=== PATIENT | male | born 1975 | race Caucasian/White ===

== ENCOUNTER 2019-09-10 18:51 | Inpatient (IN) | payer OTHER ==
[~2019-09-10] VITALS: Ht 182.9 cm; Wt 95.7 kg
--- NOTE | ~2019-09-10 | PROC ---
[address] [address] PROCEDURE REPORT Name: GRABIEL GERMAN Room: [address] ADM IN M.R.#: [id number] Admission: 09/10/19 Attend Phys: Rin Matute Discharge: Date of : 79 Report #: [id number] THIS REPORT FOR: //name// cc: FAM - No family physician/PCP FAM - No family physician/PCP ~ THIS REPORT FOR: //name// For GI report, please see the Provation report in Perceptive 7 content. By: [id number] Records Staff GILBERT /DAVID
[~2019-09-10 18:51] MED LIST: ASPIR 8181 MG PO; BACTRIM DS TAB1 EACH PO; GEMFIBROZIL1 GM PO; LANTUS100 UNIT/M SUBQ; METFORMIN HCL500 MG PO; NIACIN ER1000 MG PO; SERTRALINE HCL50 MG PO; VASCEPA0.5 GM
[2019-09-10 19:06] VITALS: BP 160/97
[2019-09-10] MEDS ORDERED: TRESIBA100 UNIT/1 SUBQ (19:11)
[2019-09-10 20:18] LABS: URINE BILIRUBIN NEGATIVE (Negative); URINE BLOOD TRACE (Negative); URINE CLARITY CLEAR; URINE COLOR YELLOW; URINE GLUCOSE-RANDOM 3+ (Negative); URINE KETONES 1+ (Negative); URINE LEUKOCYTES-REFLEX NEGATIVE (Negative); URINE NITRITE-REFLEX NEGATIVE (Negative); URINE PROTEIN 3+ (Negative); URINE SPECIFIC GRAVITY 1.025 (1.005-1.030); URINE UROBILINOGEN 0.2 E.U./dl (0.2-1.0)
[2019-09-10 20:34] LABS: BACTERIA-REFLEX None Seen /HPF (None Seen); CASTS None Seen /LPF (None Seen); CRYSTALS None Seen /LPF (None Seen); MUCUS 0-3 Light strn/LPF (None Seen); SQUAMOUS 4-10 Moderate /LPF (0-3); URINE RBC None Seen /HPF (0-2); URINE WBC-REFLEX None Seen /HPF (0-5)
[2019-09-10 20:46] LABS: ABSOLUTE BASOPHILS 0.1 thou/uL (0.0-0.2); ABSOLUTE EOSINOPHILS 0.1 thou/uL (0.0-0.7); ABSOLUTE LYMPHOCYTES 3.5 thou/uL (0.8-5.3); ABSOLUTE MONOCYTES 0.6 thou/uL (0.0-1.2); ABSOLUTE NEUTROPHILS 7.5 thou/uL (1.6-8.1); BASOPHILS 1.2 %; EOSINOPHILS 0.5 %; HEMATOCRIT 46.4 % (42.0-52.0); HEMOGLOBIN 16.2 gm/dL (14.0-18.0); LYMPHOCYTES 29.6 %; MCH 29.2 pg (26.0-34.0); MCV 83.5 fL (80.0-100.0); MONOCYTES 5.3 %; MPV 8.8 fl. (7.2-11.1); NUCLEATED RBCS 0 /100WBC; PLATELET COUNT* 267 thou/uL (150-400); POLYS 63.4 %; RBC 5.56 mil/uL (4.50-6.00); RDW-CV 14.5 % (10.5-14.5); WBC 11.8 thou/uL (4.0-11.0)
[2019-09-10 20:55] LABS: CALCIUM 9.6 mg/dL (8.5-10.1); CREATININE 0.7 mg/dL (0.6-1.3); POTASSIUM 3.8 mmol/L (3.5-5.1)
[2019-09-10 20:59] LABS: ALBUMIN 3.4 g/dL (3.4-5.0); TOTAL BILIRUBIN 0.5 mg/dL (<0.1-1.0); TOTAL PROTEIN 8.2 g/dL (6.4-8.2)
[2019-09-11] VITALS (7 sets, daily range): BP systolic 132–167; BP diastolic 80–107
[2019-09-11 03:53] LABS: ABSOLUTE BASOPHILS 0.1 thou/uL (0.0-0.2); ABSOLUTE EOSINOPHILS 0.1 thou/uL (0.0-0.7); ABSOLUTE LYMPHOCYTES 2.8 thou/uL (0.8-5.3); ABSOLUTE MONOCYTES 0.7 thou/uL (0.0-1.2); ABSOLUTE NEUTROPHILS 7.7 thou/uL (1.6-8.1); BASOPHILS 0.5 %; EOSINOPHILS 0.5 %; HEMATOCRIT 40.5 % (42.0-52.0); HEMOGLOBIN 14.3 gm/dL (14.0-18.0); MCHC 35.2 g/dL (28.0-37.0); MCV 82.2 fL (80.0-100.0); MONOCYTES 6.5 %; MPV 8.1 fl. (7.2-11.1); NUCLEATED RBCS 0 /100WBC; PLATELET COUNT* 224 thou/uL (150-400); POLYS 67.5 %; RBC 4.92 mil/uL (4.50-6.00); RDW-CV 14.5 % (10.5-14.5); WBC 11.3 thou/uL (4.0-11.0)
[2019-09-11 04:08] LABS: CALCIUM 8.4 mg/dL (8.5-10.1); CREATININE 0.7 mg/dL (0.6-1.3); POTASSIUM 3.6 mmol/L (3.5-5.1)
[2019-09-11 04:18] LABS: ALBUMIN 2.8 g/dL (3.4-5.0); TOTAL BILIRUBIN 0.5 mg/dL (<0.1-1.0); TOTAL PROTEIN 6.9 g/dL (6.4-8.2)
[2019-09-11 15:39] LABS: AMP/METHAMP Negative (Negative); BARBITURATES Negative (Negative); BENZODIAZEPINES Negative (Negative); COCAINE Negative (Negative); METHADONE Negative (Negative); OPIATES Negative (Negative); PCP Negative (Negative); THC POSITIVE (Negative)
[2019-09-11] MEDS ORDERED: LISINOPRIL10 MG PO (17:12)
[2019-09-11 23:11] LABS: GLYCOHEMOGLOBIN (HGB A1C) 11.3 % (4.8-5.6)
[2019-09-12 04:48] LABS: ABSOLUTE BASOPHILS 0.1 thou/uL (0.0-0.2); ABSOLUTE EOSINOPHILS 0.1 thou/uL (0.0-0.7); ABSOLUTE LYMPHOCYTES 2.7 thou/uL (0.8-5.3); ABSOLUTE MONOCYTES 0.6 thou/uL (0.0-1.2); ABSOLUTE NEUTROPHILS 5.8 thou/uL (1.6-8.1); BASOPHILS 0.9 %; EOSINOPHILS 0.8 %; HEMATOCRIT 39.5 % (42.0-52.0); HEMOGLOBIN 14.1 gm/dL (14.0-18.0); LYMPHOCYTES 29.2 %; MCHC 35.7 g/dL (28.0-37.0); MCV 81.1 fL (80.0-100.0); MONOCYTES 6.6 %; MPV 7.7 fl. (7.2-11.1); NUCLEATED RBCS 0 /100WBC; PLATELET COUNT* 213 thou/uL (150-400); POLYS 62.5 %; RBC 4.87 mil/uL (4.50-6.00); RDW-CV 14.3 % (10.5-14.5); WBC 9.3 thou/uL (4.0-11.0)
[2019-09-12 05:13] LABS: CALCIUM 8.1 mg/dL (8.5-10.1); CREATININE 0.5 mg/dL (0.6-1.3)
[2019-09-12 05:27] LABS: POTASSIUM 2.9 mmol/L (3.5-5.1)
[2019-09-12 08:00] VITALS: BP 155/94
--- NOTE | 2019-09-12 12:19 | CON ---
[address] [address] CONSULTATION Name: GRABIEL GERMAN Marcos Room: [address] IN M.R.#: [id number] Admission: 09/10/19 Attend Phys: Rin Matute Discharge: Date of : 79 Report #: [id number] THIS REPORT FOR: //name// cc: JORGE ALBERTO Zarate family physician/PCP JORGE ALBERTO - No family physician/PCP ~ THIS REPORT FOR: //name// CC: [facility] physician/PCP Torrie Byers DICTATED BY: Fifi Sanders [facility] DATE OF SERVICE: 09/11/2019 PRIMARY CARE PHYSICIAN: Torrie Sosa MD Please note at the time of this dictation, the patient was seen and physically examined by myself. REASON FOR CONSULTATION: Epigastric pain, nausea and vomiting, and thickening of his small bowel and colon bedolla. ALLERGIES: No known drug allergies. MEDICATIONS FROM HOME: Insulin, Zoloft, gemfibrozil, Vascepa, metformin, aspirin, niacin. HISTORY OF PRESENT ILLNESS: This is a 44-year-old male who presented to the Emergency Room with 3 days prior to admission having recurrent episodes of nausea and vomiting. He had some difficulty swallowing. He was breaking out in hot and cold sweats. He denied any bright red blood or coffee-ground emesis. He has had a decreased appetite and he has had some epigastric pain. The patient states he had a similar episode back in August as well. He states these episodes have been intermittent since December 2018 with his last episode being 08/15/2019. All have been of similar nature. This one seems to be somewhat worsened. He states his bowels typically move daily, soft and formed. He denies ever having an EGD or colonoscopy done before. PAST MEDICAL HISTORY: High cholesterol and insulin-dependent diabetic. PAST SURGICAL HISTORY: He had a cyst on his tailbone. FAMILY HISTORY: Negative for any GI or female cancers as well [place] [address] CONSULTATION Name: GRABIEL GERMAN Room: [address] IN [facility].#: [id number] Admission: 09/10/19 Attend Phys: Rin Matute Discharge: Date of : 79 Report #: [id number] SOCIAL HISTORY: Alcohol, special occasions. Denies any tobacco or illegal drug use. REVIEW OF SYSTEMS: Twelve-point review of systems is essentially negative except what is mentioned in the HPI. PHYSICAL EXAMINATION: VITAL SIGNS: Temperature 36.5, pulse 66, respirations 16, blood pressure 147/93. HEART: Regular rate and rhythm. LUNGS: Clear. ABDOMEN: Soft, positive bowel sounds in all 4 quadrants with epigastric tenderness noted to palpation. LABORATORY DATA: Hemoglobin is 14.3, white count is 11.3, platelets 224. Sodium is 130, BUN is up a little bit at 20 with a GFR of 124. CT of the abdomen and pelvis showed abnormal wall thickening of the small and large bowel. IMPRESSION: 1. Nausea and vomiting, improving. 2. Epigastric pain. 3. Leukocytosis. 4. Abnormal CT, thickening of the small and large intestine bedolla. PLAN: 1. Labs, ESR, CRP. 2. EGD and colonoscopy tomorrow with Dr. Sharma. 3. Further recommendations to be made once the procedure has been performed. Thank you for allowing us to participate in this patient's care. Please do not hesitate to call with any questions in regard to this consult. Agree with above assessment and plan by Fifi Sanders. VK. <ELECTRONICALLY SIGNED> By: Nico Sharma MD 09/12/19 1219 1125 1343Nico Sharma MD /nt
--- NOTE | 2019-09-12 13:57 | EKG ---
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
[2019-09-12 16:00] VITALS: BP 153/97
[2019-09-12 20:10] VITALS: BP 147/85
[2019-09-13 04:09] LABS: ABSOLUTE EOSINOPHILS 0.1 thou/uL (0.0-0.7); ABSOLUTE LYMPHOCYTES 2.3 thou/uL (0.8-5.3); ABSOLUTE MONOCYTES 0.5 thou/uL (0.0-1.2); ABSOLUTE NEUTROPHILS 4.4 thou/uL (1.6-8.1); BASOPHILS 0.5 %; HEMATOCRIT 39.8 % (42.0-52.0); HEMOGLOBIN 14.3 gm/dL (14.0-18.0); LYMPHOCYTES 31.5 %; MCH 29.3 pg (26.0-34.0); MCHC 35.9 g/dL (28.0-37.0); MCV 81.7 fL (80.0-100.0); MONOCYTES 6.9 %; MPV 8.5 fl. (7.2-11.1); NUCLEATED RBCS 0 /100WBC; PLATELET COUNT* 210 thou/uL (150-400); POLYS 60.1 %; RBC 4.87 mil/uL (4.50-6.00); RDW-CV 14.7 % (10.5-14.5); WBC 7.3 thou/uL (4.0-11.0)
[2019-09-13 04:37] LABS: CALCIUM 9.1 mg/dL (8.5-10.1); CREATININE 0.6 mg/dL (0.6-1.3); POTASSIUM 3.1 mmol/L (3.5-5.1)
[2019-09-13 08:43] VITALS: BP 149/98
[2019-09-13 11:02] VITALS: BP 149/98
[2019-09-13 17:38] VITALS: BP 171/101
[2019-09-13 18:24] VITALS: BP 178/108
[2019-09-13 22:30] VITALS: BP 168/107
[2019-09-14 07:57] VITALS: BP 166/90
[2019-09-14 16:00] VITALS: BP 125/85
[2019-09-15 00:48] VITALS: BP 144/77
[2019-09-15 08:10] VITALS: BP 168/105
[2019-09-15 16:00] VITALS: BP 166/105
[2019-09-15 20:40] VITALS: BP 106/68
[2019-09-16 07:50] VITALS: BP 121/84
[2019-09-16] MEDS ORDERED: AMARYL4 MG PO (13:57)
[2019-09-16] MEDS ORDERED: METFORMIN HCL500 MG PO (13:57)
[2019-09-16] MEDS ORDERED: REGLAN 10 MG TA10 MG PO (14:01)
[2019-09-16] MEDS ORDERED: NOVOLIN R100 UNIT/1 SUBQ (17:40)
[2019-09-16] MEDS ORDERED: NOVOLIN N100 UNIT/3 SUBQ (17:43)
[2019-09-16 17:50] VITALS: BP 121/84
[2019-09-16 19:53] VITALS: BP 121/84
[2019-09-16] MEDS ORDERED: PROTONIX40 M1 PO (20:45)
== END 2019-09-16 19:30 | disposition home or self-care (01) | DRG 74 ==
LOC: M.ERS 18:51 → M.3W 22:46 → M.TBA-ER 22:46 → M.3W 09-11 09:10
PROVIDERS: Internal Medicine; Nurse Practitioner Family; Physician Assistant; ADMIT Internal Medicine
DX: E11.43 Type 2 diabetes mellitus with diabetic autonomic (poly)neuropathy (principal); E87.1 Hypo-osmolality and hyponatremia; K52.9 Noninfective gastroenteritis and colitis, unspecified; E78.00 Pure hypercholesterolemia, unspecified; E78.5 Hyperlipidemia, unspecified; K31.84 Gastroparesis; F17.210 Nicotine dependence, cigarettes, uncomplicated; E11.65 Type 2 diabetes mellitus with hyperglycemia; E86.0 Dehydration; K21.0 Gastro-esophageal reflux disease with esophagitis; Z79.899 Other long term (current) drug therapy; Z79.82 Long term (current) use of aspirin; Z79.4 Long term (current) use of insulin

== ENCOUNTER 2019-12-25 15:15 | Emergency (ER) | payer BC ==
[~2019-12-25] VITALS: Ht 185.4 cm; Wt 97.5 kg
[~2019-12-25 15:15] MED LIST changes: +AMARYL4 MG PO; +LISINOPRIL10 MG PO; +NOVOLIN N100 UNIT/3 SUBQ; +NOVOLIN R100 UNIT/1 SUBQ; +PROTONIX40 M1 PO; +REGLAN 10 MG TA10 MG PO; +TRESIBA100 UNIT/1 SUBQ
[2019-12-25 15:47] LABS: URINE BILIRUBIN NEGATIVE (Negative); URINE BLOOD NEGATIVE (Negative); URINE CLARITY CLEAR; URINE COLOR YELLOW; URINE GLUCOSE-RANDOM NEGATIVE (Negative); URINE KETONES NEGATIVE (Negative); URINE LEUKOCYTES-REFLEX NEGATIVE (Negative); URINE NITRITE-REFLEX NEGATIVE (Negative); URINE PROTEIN 2+ (Negative); URINE SPECIFIC GRAVITY >= 1.030 (1.005-1.030); URINE UROBILINOGEN 0.2 E.U./dl (0.2-1.0)
[2019-12-25] MEDS ORDERED: GEMFIBROZIL 60600 MG PO (15:57)
[2019-12-25] MEDS ORDERED: REGLAN 10 MG TA10 MG PO (15:57)
[2019-12-25 15:58] LABS: ABSOLUTE BASOPHILS 0.1 thou/uL (0.0-0.2); ABSOLUTE LYMPHOCYTES 2.8 thou/uL (0.8-5.3); ABSOLUTE MONOCYTES 0.4 thou/uL (0.0-1.2); ABSOLUTE NEUTROPHILS 7.4 thou/uL (1.6-8.1); BASOPHILS 0.7 %; EOSINOPHILS 0.2 %; HEMATOCRIT 41.9 % (42.0-52.0); HEMOGLOBIN 14.7 gm/dL (14.0-18.0); LYMPHOCYTES 26.2 %; MCH 29.5 pg (26.0-34.0); MCHC 35.2 g/dL (28.0-37.0); MCV 83.6 fL (80.0-100.0); MONOCYTES 3.8 %; MPV 8.1 fl. (7.2-11.1); NUCLEATED RBCS 0 /100WBC; PLATELET COUNT* 249 thou/uL (150-400); POLYS 69.1 %; RBC 5.01 mil/uL (4.50-6.00); RDW-CV 13.7 % (10.5-14.5); WBC 10.8 thou/uL (4.0-11.0)
[2019-12-25] MEDS ORDERED: FISH OIL 1,0001 EAC9 PO (15:58)
[2019-12-25] MEDS ORDERED: METFORMIN HCL500 M3 PO (15:58)
[2019-12-25 16:00] LABS: SQUAMOUS NONE SEEN /LPF (0-3); URINE WBC-REFLEX None Seen /HPF (0-5)
[2019-12-25] MEDS ORDERED: LANTUS SUBQ (16:00)
[2019-12-25 16:01] LABS: BACTERIA-REFLEX 1-9 Few /HPF (None Seen); CASTS None Seen /LPF (None Seen); CRYSTALS None Seen /LPF (None Seen); MUCUS None Seen strn/LPF (None Seen); URINE RBC None Seen /HPF (0-2)
[2019-12-25 16:28] LABS: CALCIUM 8.9 mg/dL (8.5-10.1); CREATININE 0.8 mg/dL (0.6-1.3); POTASSIUM 3.4 mmol/L (3.5-5.1)
[2019-12-25 16:40] LABS: ALBUMIN 3.4 g/dL (3.4-5.0); TOTAL BILIRUBIN 0.3 mg/dL (<0.1-1.0); TOTAL PROTEIN 7.7 g/dL (6.4-8.2)
[2019-12-25] MEDS ORDERED: ONDANSETRON HCL4 M2 PO ×2 (18:13→18:16)
[2019-12-25] MEDS ORDERED: NORCO 5-325 TA1 EAC1 PO (18:13)
[2019-12-25 18:48] VITALS: BP 166/95
--- NOTE | 2019-12-26 14:05 | EKG ---
[place] [address] ELECTROCARDIOGRAM REPORT Name: GRABIEL GERMAN Room: 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
== END 2019-12-25 18:48 | disposition home or self-care (01) ==
LOC: M.ERS 15:15
PROVIDERS: Nurse Practitioner Family
DX: R10.84 Generalized abdominal pain (principal); R10.31 Right lower quadrant pain; R11.2 Nausea with vomiting, unspecified; E11.9 Type 2 diabetes mellitus without complications; F17.210 Nicotine dependence, cigarettes, uncomplicated; F12.10 Cannabis abuse, uncomplicated; E78.00 Pure hypercholesterolemia, unspecified; Z90.89 Acquired absence of other organs; Z79.4 Long term (current) use of insulin; Z79.82 Long term (current) use of aspirin

== ENCOUNTER 2020-01-02 07:41 | Emergency (ER) | payer BC ==
[~2020-01-02] VITALS: Ht 185.4 cm; Wt 97.5 kg
[~2020-01-02 07:41] MED LIST changes: +FISH OIL 1,0001 EAC9 PO; +GEMFIBROZIL 60600 MG PO; +LANTUS SUBQ; +METFORMIN HCL500 M3 PO; +NORCO 5-325 TA1 EAC1 PO; +ONDANSETRON HCL4 M2 PO
[2020-01-02] MEDS ORDERED: NOVOLOG FL100 UNIT/M SUBQ (07:54)
[2020-01-02 08:06] LABS: ABSOLUTE BASOPHILS 0.1 thou/uL (0.0-0.2); ABSOLUTE EOSINOPHILS 0.1 thou/uL (0.0-0.7); ABSOLUTE LYMPHOCYTES 2.8 thou/uL (0.8-5.3); ABSOLUTE MONOCYTES 0.6 thou/uL (0.0-1.2); ABSOLUTE NEUTROPHILS 7.4 thou/uL (1.6-8.1); BASOPHILS 0.6 %; HEMATOCRIT 42.8 % (42.0-52.0); HEMOGLOBIN 14.9 gm/dL (14.0-18.0); LYMPHOCYTES 25.3 %; MCH 29.1 pg (26.0-34.0); MCHC 34.8 g/dL (28.0-37.0); MCV 83.6 fL (80.0-100.0); MONOCYTES 5.2 %; MPV 7.5 fl. (7.2-11.1); NUCLEATED RBCS 0 /100WBC; PLATELET COUNT* 284 thou/uL (150-400); POLYS 67.9 %; RBC 5.12 mil/uL (4.50-6.00); RDW-CV 14.3 % (10.5-14.5); WBC 10.9 thou/uL (4.0-11.0)
[2020-01-02] MEDS ORDERED: ZOFRAN ODT4 MG DISSOLVE (08:20)
[2020-01-02 08:24] LABS: POTASSIUM 3.8 mmol/L (3.5-5.1)
[2020-01-02 08:33] LABS: ALBUMIN 3.3 g/dL (3.4-5.0); TOTAL BILIRUBIN 0.2 mg/dL (<0.1-1.0); TOTAL PROTEIN 7.5 g/dL (6.4-8.2)
[2020-01-02 08:50] VITALS: BP 124/71
== END 2020-01-02 08:51 | disposition home or self-care (01) ==
LOC: M.ERS 07:41
PROVIDERS: Family Medicine
DX: R11.15 Cyclical vomiting syndrome unrelated to migraine (principal); F12.10 Cannabis abuse, uncomplicated; E11.9 Type 2 diabetes mellitus without complications; E78.00 Pure hypercholesterolemia, unspecified; G89.29 Other chronic pain; Z79.82 Long term (current) use of aspirin; Z79.4 Long term (current) use of insulin; Z79.899 Other long term (current) drug therapy

== ENCOUNTER 2020-01-23 07:51 | Emergency (ER) | payer BC ==
[~2020-01-23] VITALS: Ht 182.9 cm; Wt 97.5 kg
[~2020-01-23 07:51] MED LIST changes: +NOVOLOG FL100 UNIT/M SUBQ; +ZOFRAN ODT4 MG DISSOLVE
[2020-01-23 08:21] LABS: ABSOLUTE BASOPHILS 0.1 thou/uL (0.0-0.2); ABSOLUTE LYMPHOCYTES 4.2 thou/uL (0.8-5.3); ABSOLUTE MONOCYTES 0.8 thou/uL (0.0-1.2); ABSOLUTE NEUTROPHILS 8.1 thou/uL (1.6-8.1); BASOPHILS 0.7 %; EOSINOPHILS 0.3 %; HEMATOCRIT 44.7 % (42.0-52.0); HEMOGLOBIN 15.8 gm/dL (14.0-18.0); LYMPHOCYTES 31.9 %; MCH 29.1 pg (26.0-34.0); MCHC 35.5 g/dL (28.0-37.0); MCV 81.9 fL (80.0-100.0); MONOCYTES 5.8 %; MPV 7.9 fl. (7.2-11.1); NUCLEATED RBCS 0 /100WBC; PLATELET COUNT* 284 thou/uL (150-400); POLYS 61.3 %; RBC 5.45 mil/uL (4.50-6.00); RDW-CV 14.1 % (10.5-14.5); WBC 13.1 thou/uL (4.0-11.0)
[2020-01-23 08:26] LABS: CALCIUM 9.5 mg/dL (8.5-10.1); CREATININE 0.8 mg/dL (0.6-1.3); POTASSIUM 3.8 mmol/L (3.5-5.1)
[2020-01-23 08:29] LABS: APTT 30.7 Seconds (25.0-31.3); INR 1.1; PROTIME 11.1 Seconds (9.20-11.50)
[2020-01-23 08:31] LABS: ALBUMIN 3.8 g/dL (3.4-5.0); TOTAL BILIRUBIN 0.5 mg/dL (<0.1-1.0)
[2020-01-23] MEDS ORDERED: NORCO 5-325 TA1 EAC1 PO (08:53)
[2020-01-23] MEDS ORDERED: ZOFRAN ODT4 MG SUBLING (08:53)
[2020-01-23 09:01] VITALS: BP 120/78
== END 2020-01-23 09:02 | disposition home or self-care (01) ==
LOC: M.ERS 07:51
PROVIDERS: Family Medicine
DX: R11.15 Cyclical vomiting syndrome unrelated to migraine (principal); R19.7 Diarrhea, unspecified; E78.00 Pure hypercholesterolemia, unspecified; E11.9 Type 2 diabetes mellitus without complications; K21.9 Gastro-esophageal reflux disease without esophagitis; G89.29 Other chronic pain; F17.210 Nicotine dependence, cigarettes, uncomplicated; Z79.4 Long term (current) use of insulin; Z79.84 Long term (current) use of oral hypoglycemic drugs; Z79.899 Other long term (current) drug therapy